=== PATIENT | female | born 1965 | race Caucasian/White ===

== ENCOUNTER 2017-01-18 05:55 | Day surgery (SDC) | payer OTHER ==
[2017-01-18] VITALS (16 sets, daily range): BP systolic 103–131; BP diastolic 60–79; PULSE 58–80; RESP 12–18; Ht 162.6 cm; Wt 60.4 kg
[~2017-01-18] VITALS: Ht 162.6 cm; Wt 60.4 kg
[~2017-01-18 05:55] MED LIST: ASPI-664 PO
[2017-01-18] MEDS ORDERED: LIDOCAINE 1% (MPF) 30 ML INJ INJ ONE (07:37)
[2017-01-18] MEDS ORDERED: DEXAMETHASONE 4 MG/ML 1 ML INJ INJ ONE (07:56)
[2017-01-18] MEDS ORDERED: BUPIVACAINE 0.5% (MPF) 30 ML INJ INJ ONE (07:56)
--- NOTE | 2017-01-18 08:01 | HPN ---
Date/Time of Note Date/Time of Note DATE: 01/18/17 TIME: 07:27 Interval H&P Admission Note Pt. seen H&P reviewed: No system changes ITZEL HUGHES DPM Jan 18, 2017 08:01
--- NOTE | 2017-01-18 08:14 | OPR ---
Date/Time of Note Date/Time of Note DATE: 01/18/17 TIME: 08:11 Operative Report Preoperative Diagnosis soft tissue mass rt great toe Postoperative Diagnosis same Operation/Procedure Performed resection of mass Surgeon: ITZEL HUGHES DPM Anesthesia: MAC Estimated Blood Loss: none Specimens specimen Grafts/Implants none Complications: None ITZEL HUGHES DPM Jan 18, 2017 08:14
[2017-01-18] MEDS ORDERED: FENTAnyl 50 MCG/ML VIAL IV PRN (08:30)
[2017-01-18] MEDS ORDERED: PROCHLORPERAZINE 10 MG INJ IV PRN (08:30)
[2017-01-18] MEDS ORDERED: HYDROmorphONE (0.2 MG/ML) 10ML SYG IV PRN (08:30)
[2017-01-18] MEDS ORDERED: OXYCODONE/ACETAMINOPHEN (5/325) TAB PO PRN (08:30)
[2017-01-18] MEDS ORDERED: DIPHENHYDRAMINE 50 MG INJ IV PRN (08:30)
[2017-01-18] MEDS ORDERED: ONDANSETRON 4 MG INJ IV PRN (08:30)
[2017-01-18] MEDS ORDERED: LACTATED RINGER'S 1,000 ML IV SCH (09:00)
--- NOTE | 2017-01-19 06:28 | OPR ---
DATE OF OPERATION: 01/18/2017 PREOPERATIVE DIAGNOSIS: Painful lesion right great toe. POSTOPERATIVE DIAGNOSIS: Painful lesion right great toe. OPERATION: Resection of a lesion from right great toe. SURGEON: Bismark Yang DPM DESCRIPTION OF PROCEDURE: The patient was brought to the OR and placed in the supine position on the operating room table. Anesthesia was achieved using MAC and local for 8 mL of lidocaine 1 percent plain. The foot was then prepped and draped in the usual sterile fashion and a toe tourniquet was used. Attention was directed to the plantar aspect of the right great toe. A circular incision was made around the lesion, plantar aspect of the right great toe. The incision was deepened to the dermis and the lesion was resected in toto. The area was then coagulated with a Bovie and then covered with antibiotic and sterile dressing. The patient tolerated anesthesia and the procedure well and left the OR for recovery room with vital signs stable and neurovascular status intact. Written and oral postoperative instructions were given to the patient and we will follow up the patient in 2 days. Dictated By: Bismark Yang DPM /lucas/timbo /Document#: [id number]
[2017-01-19] MEDS ORDERED: MIDAZOLAM 1 MG/ML 2 ML INJ ONE (18:01)
[2017-01-19] MEDS ORDERED: CEFAZOLIN 1 GM INJ ONE (18:01)
[2017-01-19] MEDS ORDERED: LIDOCAINE 1% (MPF) 10 ML INJ ONE (18:01)
[2017-01-19] MEDS ORDERED: EPHEDrine SULFATE 50 MG/5 ML SYG ONE (18:01)
[2017-01-19] MEDS ORDERED: DEXAMETHASONE 4 MG/ML 1 ML INJ ONE (18:01)
[2017-01-19] MEDS ORDERED: BUPIVACAINE 0.5% (SDV) 30 ML INJ ONE (18:01)
[2017-01-19] MEDS ORDERED: LIDOCAINE 2% (SDV) 5 ML INJ ONE (18:01)
[2017-01-19] MEDS ORDERED: LIDOCAINE 1% (MPF) 30 ML INJ ONE (18:01)
[2017-01-19] MEDS ORDERED: FENTAnyl 50 MCG/ML VIAL ONE (18:01)
[2017-01-19] MEDS ORDERED: PROPOFOL 20 ML ONE (18:01)
== END 2017-01-18 10:21 | disposition home or self-care (01) ==
LOC: SDS 05:55
PROVIDERS: ATTEND Podiatrist
DX: L57.0 Actinic keratosis (principal)
CPT/HCPCS: 11421; 88304; J1100; Z7512; Z7610; J0690; J2250; J3010